=== PATIENT | male | born 1990 | race Caucasian/White ===

== ENCOUNTER 2018-09-04 04:08 | Emergency (ER) | payer OTHER ==
[~2018-09-04] VITALS: Ht 165.1 cm; Wt 86.2 kg
--- NOTE | ~2018-09-04 | EKG ---
[place] [address] [employer] [facility] [place] [address] ELECTROCARDIOGRAM REPORT Name: GREGG RICH [facility] [id number] Admission: 09/04/18 Attend Phys: Discharge: 09/04/18 Date of : 89 Report #: [id number] THIS REPORT FOR: //name// [facility] ED Test Date: 2018-09-04 Test Time: 04:50:04 Pat Name: GREGG RICH Department: Room: Gender: Parking Supervisor: JAZZY : 1990 Requested By: Zo Aviles Order Number: [id number] MD: Roldan Julien Measurements Intervals [place] Rate: 102 P: 32 LA: 164 QRS: 52 QRSD: 94 T: 10 QT: 369 QTc: 481 Interpretive Statements Sinus tachycardia Otherwise no significant abnormality No previous ECG available for comparison Electronically Signed On 09-04-2018 11:00:26 DEVELOPMENTAL WRITING INSTRUCTOR by Roldan Julien [email or web address] <ELECTRONICALLY SIGNED> By: Roldan Julien MD, [facility] 09/04/18 1100 0450 0450 Roldan Julien MD, FACC /EPI
[2018-09-04 04:49] LABS: ABSOLUTE NEUTROPHILS 7.6 thou/uL (1.4-8.2); BASOPHILS 0.8 % (0.0-2.0); EOSINOPHILS 0.8 % (0.0-3.0); HEMOGLOBIN 15.7 gm/dL (14.0-18.0); LYMPHOCYTES 25.1 % (24.0-44.0); MCH 30.6 pg (26.0-34.0); MCHC 34.8 g/dL (28.0-37.0); MCV 87.9 fL (80.0-100.0); MONOCYTES 5.3 % (1.0-8.0); PLATELET COUNT 279 thou/uL (150-400); RBC 5.11 mil/uL (4.50-6.00); RDW 12.8 % (10.5-14.5); WBC 11.2 thou/uL (4.0-11.0)
[2018-09-04 04:59] LABS: CALCIUM 9.7 mg/dL (8.5-10.1); CREATININE 1.2 mg/dL (0.7-1.3); POTASSIUM 3.1 mmol/L (3.5-5.1)
[2018-09-04 05:00] LABS: MAGNESIUM 1.7 mg/dL (1.8-2.4)
[2018-09-04 05:54] LABS: AMP/METHAMP Negative (Negative); BARBITURATES Negative (Negative); BENZODIAZEPINES Negative (Negative); COCAINE Negative (Negative); METHADONE Negative (Negative); OPIATES Negative (Negative); PCP Negative (Negative)
[2018-09-04] MEDS ORDERED: ATIVAN0.5 MG PO (06:25)
[2018-09-04 06:31] VITALS: BP 128/71
== END 2018-09-04 06:40 | disposition home or self-care (01) ==
LOC: ER 04:08
PROVIDERS: Emergency Medicine
DX: F41.9 Anxiety disorder, unspecified (principal); E87.6 Hypokalemia; R06.00 Dyspnea, unspecified